=== PATIENT | female | born 1980 | race Caucasian/White ===

== ENCOUNTER 2024-12-03 16:01 | Outpatient (CLI) | payer BC, SELFPAY ==
[2024-12-05 23:47] LABS: HPV Source Cervical
[2024-12-08 11:23] LABS: Pap Test Digital Imaging Done
== END 2024-12-03 16:02 | disposition home or self-care (01) ==
PROVIDERS: Visit Provider Obstetrics & Gynecology
DX: Z12.4 Encounter for screening for malignant neoplasm of cervix (principal); Z11.51 Encounter for screening for human papillomavirus (HPV)
CPT/HCPCS: 87624; 87625; 88141; 88142; 88175

== ENCOUNTER 2024-12-07 08:14 | Outpatient (CLI) | payer BC, SELFPAY | END 2024-12-07 08:15 | disposition home or self-care (01) | LOC: NFLDREF 12-08 18:06 | PROVIDERS: Visit Provider Obstetrics & Gynecology | DX: Z00.00 Encounter for general adult medical examination without abnormal findings (principal); E55.9 Vitamin D deficiency, unspecified; Z13.6 Encounter for screening for cardiovascular disorders | CPT/HCPCS: 80061; 82306 ==

== ENCOUNTER 2024-12-08 07:53 | Outpatient (CLI) | payer BC, SELFPAY | END 2024-12-08 07:54 | disposition home or self-care (01) | LOC: OP CLINIC 07:57 | PROVIDERS: Visit Provider Internal Medicine | DX: Z53.9 Procedure and treatment not carried out, unspecified reason (principal) ==

== ENCOUNTER 2025-01-13 08:16 | Outpatient (CLI) | payer BC, SELFPAY ==
--- NOTE | 2025-01-13 08:45 | CRLHL7_ITS ---
For Patients: As a result of the Century Cures Act, medical imaging exams and procedure reports are released immediately into your electronic medical record. You may view this report before your referring provider. If you have questions, please contact your health care provider. BILATERAL DIAGNOSTIC MAMMOGRAM WITH IMPLANT DISPLACED VIEWS USING COMPUTER-AIDED DETECTION AND TOMOSYNTHESIS LEFT BREAST ULTRASOUND CLINICAL HISTORY: LEFT breast pain. COMPARISON: None. TECHNIQUE: Digital BILATERAL mammogram in four projections with computer-aided detection. Tomosynthesis was used in this interpretation. Real-time ultrasound imaging of LEFT breast with imaging documentation. Scanning was performed by both the technologist and the radiologist. BREAST COMPOSITION: There are scattered areas of fibroglandular density. FINDINGS: BILATERAL mammogram images submitted. BILATERAL subpectoral breast implants are present. Subtle asymmetry of the LEFT breast implant noted. Normal fibroglandular tissue bilaterally without architectural distortion or suspicious mass. No suspicious calcifications or adenopathy. Targeted LEFT breast ultrasound performed at the medial LEFT breast 9 o`clock 5-7 cm from the nipple. There is ill-defined echogenic shadowing associated with the medial breast implant. Ultrasound of the medial RIGHT breast implant was normal. IMPRESSION: Findings are suspicious for LEFT medial breast implant leakage. No evidence of malignancy. RECOMMENDATIONS: Plastic surgery consultation. Routine screening mammography. A lay language report of this examination will be provided to the patient. BI-RADS Category 2: Benign. Dictated by Luis Daniel England MD @ 01/13/2025 12:55:10 PM /sp SP/Dictated by: Luis Daniel England MD @ 01/13/2025 12:55:00 PM (Electronically Signed)
--- NOTE | 2025-01-13 09:15 | CRLHL7_ITS ---
For Patients: As a result of the Century Cures Act, medical imaging exams and procedure reports are released immediately into your electronic medical record. You may view this report before your referring provider. If you have questions, please contact your health care provider. PLEASE SEE BILATERAL BREAST DIAGNOSTIC MAMMOGRAM PERFORMED SAME DAY. CRL:sp SP/Dictated by: Luis Daniel England MD @ 01/13/2025 10:19:00 AM (Electronically Signed)
== END 2025-01-13 08:17 | disposition home or self-care (01) ==
LOC: MAMMO 08:17
PROVIDERS: Visit Provider Obstetrics & Gynecology
DX: N63.20 Unspecified lump in the left breast, unspecified quadrant (principal); N64.4 Mastodynia; Z98.82 Breast implant status
CPT/HCPCS: 76642; 77066; 77067; G0279

== ENCOUNTER 2025-01-18 07:52 | Outpatient (CLI) | payer BC, SELFPAY ==
--- NOTE | 2025-01-18 09:11 | P.ANES_ITS ---
Anesthesia Charges Start Date/Time Anesthesia Start Date: 01/18/25 Anesthesia Start Time: 08:47 Stop Date/Time Anesthesia Stop Date: 01/18/25 Anesthesia Stop Time: 09:09 Coding CPT Codes CPT Codes: DAVID LWR INTST SCR COLSC - 06564 ([id number]) P1 - NORMAL HEALTHY PATIENT, QX - HEARING IMPAIRED TEACHER SVCatrina W/ MED DIRECTION, QK - ELEMENTARY SCHOOL TEACHER'S AIDE 2-4 CNCRNT ANEClarice PROC
--- NOTE | 2025-01-18 09:11 | W.ANESCHARGE ---
Anesthesia Charges Start Date/Time Anesthesia Start Date: 01/18/25 Anesthesia Start Time: 08:47 Stop Date/Time Anesthesia Stop Date: 01/18/25 Anesthesia Stop Time: 09:09 Coding CPT Codes CPT Codes: DAVID LWR INTST SCR COLSC - [id number] ([id number]) P1 - NORMAL HEALTHY PATIENT, QX - PRODUCT DEVELOPER SVCatrina W/ MED DIRECTION, QK - TUBE AND MANIFOLD BUILDER 2-4 CNCRNT ANEClarice PROC
--- NOTE | 2025-01-18 10:24 | W.ANESCHARGE ---
Anesthesia Charges Start Date/Time Anesthesia Start Date: 01/18/25 Anesthesia Start Time: 08:47 Stop Date/Time Anesthesia Stop Date: 01/18/25 Anesthesia Stop Time: 09:09 Coding CPT Codes CPT Codes: DAVID LWR INTST SCR COLSC - [id number] ([id number]) P1 - NORMAL HEALTHY PATIENT, QK - SHREDDER OPERATOR 2-4 CNCRNT ANES PROC, QX - ADMINISTRATIVE OFFICE SPECIALIST SVC W/ MED DIRECTION
--- NOTE | 2025-01-18 10:24 | P.ANES_ITS ---
Anesthesia Charges Start Date/Time Anesthesia Start Date: 01/18/25 Anesthesia Start Time: 08:47 Stop Date/Time Anesthesia Stop Date: 01/18/25 Anesthesia Stop Time: 09:09 Coding CPT Codes CPT Codes: DAVID LWR INTST SCR COLSC - [id number] ([id number]) P1 - NORMAL HEALTHY PATIENT, QK - HIGH SCHOOL PHYSICAL EDUCATION TEACHER 2-4 CNCRNT ANES PROC, QX - ALTERATIONS SEWER SVC W/ MED DIRECTION
== END 2025-01-18 07:53 | disposition home or self-care (01) ==
LOC: OP CLINIC 07:53
PROVIDERS: Visit Provider Surgery
DX: Z12.11 Encounter for screening for malignant neoplasm of colon (principal)
CPT/HCPCS: 00812; 45378; J2704